=== PATIENT | male | born 1980 | race Native Hawaiian/Other Pacific Islander ===

== ENCOUNTER 2022-11-09 11:06 | Outpatient (CLI) | payer SELFPAY | END 2022-11-09 23:59 | disposition EMS.NT | LOC: EMS 11:06 | DX: T22.112A Burn of first degree of left forearm, initial encounter (principal); T23.162A Burn of first degree of back of left hand, initial encounter; X08.8XXA Exposure to other specified smoke, fire and flames, initial encounter ==

== ENCOUNTER 2022-11-09 11:46 | Emergency (ER) | payer SELFPAY ==
[2022-11-09 12:06] VITALS: BP 162/106; O2SAT 96
[2022-11-09] MEDS ORDERED: SILVER SULFADIAZINE CREAM 25 GM TUBE TOP STA (12:19)
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
== END 2022-11-09 13:00 | disposition home or self-care (01) ==
LOC: ED 11:46
DX: T23.232A Burn of second degree of multiple left fingers (nail), not including thumb, initial encounter (principal); T22.112A Burn of first degree of left forearm, initial encounter; T31.0 Burns involving less than 10% of body surface; X08.8XXA Exposure to other specified smoke, fire and flames, initial encounter; Y92.89 Other specified places as the place of occurrence of the external cause
CPT/HCPCS: 99281; 99282; A9270